=== PATIENT | female | born 1930 | race Caucasian/White ===

== ENCOUNTER 2016-10-13 16:14 | Inpatient (IN) | payer OTHER, MEDICARE ==
[~2016-10-13] VITALS: Ht 157.5 cm; Wt 62.3 kg
[~2016-10-13 16:14] MED LIST: AMPICILLIN500 M1 PO; ASPIRIN EC325 MG PO; Benadryl PO; CELEBREX200 MG PO; CENTRUM SILVER1 EAC3 PO; ENDURON5 MG PO; Ecotrin PO; FERROUS SULFAT325 MG PO; Feosol PO; HYDROCHLOROTHIA25 MG PO; HYDROCODON-ACE1 EAC7 PO; Levaquin PO; Martinic PO; NORVASC10 MG PO; Norvasc PO; OMEGA 3-6-91200 MG PO; POTASSIUM-9999 MG PO; SALMON OIL PO; SENOKOT S,PE1 TABLET PO; Senokot S,Pericolace PO; TRAMADOL HCL50 MG PO; Theragran PO; ULTRAM50 MG PO; Ultram PO; VOLTAREN75 MG PO; Vicodin,Norco 5/325 PO; XANAX0.5 MG PO; Xanax PO; ZOCOR80 MG PO; ZOLOFT50 MG PO; Zocor PO; Zoloft PO
[2016-10-13 16:43] LABS: EOSINOPHIL (%) 4.1 % (0-5); EOSINOPHIL COUNT 0.3 K/uL (0-0.3); HEMATOCRIT 32.4 % (36.0-46.0); IMMATURE GRANULOCYTE (%) 0.3 % (0.0-0.7); INSTRUMENT ABS NEUTROPHIL CT 4.3 K/uL; LYMPHOCYTE COUNT 2.4 K/uL (1.0-2.8); MCH 25.8 PG (29.0-34.0); MCHC 31.8 G/DL (30.0-36.0); MEAN PLAT.VOLUME 9.6 uM^3 (9.5-12.4); MONOCYTE (%) 8.7 % (3-12); MONOCYTE COUNT 0.7 K/uL (0-0.8); NEUTROPHIL (%) 55.4 % (45-76); NEUTROPHIL COUNT 4.3 K/uL (1.8-6.4); PLATELET COUNT 235 K/uL (156-360); RBC DIS.WIDTH-CV 13.9 % (11.8-14.6); RBC DIS.WIDTH-SD 40.8 % (39-53); WHITE BLOOD COUNT 7.8 K/uL (4.1-10.2)
[2016-10-13 16:47] LABS: AMYLASE 52 IU/L (1-118); CHLORIDE 106 mEq/L (99-109); POTASSIUM 3.6 mEq/L (3.7-5.4); SODIUM 142 mEq/L (136-147)
[2016-10-13 16:49] LABS: GLUCOSE 82 mg/dL (70-99); PROTHROMBIN TIME 10.3 (9.2-11.2); PTT 39.5 (25-32)
[2016-10-13 16:50] LABS: ANION GAP 8 MEQ/L (2-14)
[2016-10-13 16:52] LABS: SERUM ETHYL ALCOHOL < 10 mg/dL
[2016-10-13 16:53] LABS: GFR ESTIMATE (CALCULATED) > 59 mL/min/
[2016-10-13 16:54] LABS: UREA NITROGEN (BUN) 22 mg/dL (9-23)
[2016-10-13 16:56] LABS: LIPASE 34 U/L (1.0-51.0)
[2016-10-13 17:00] LABS: TROP-I INTERPRETATION NEGATIVE; TROPONIN-I < 0.01 ng/mL (0.0-0.30)
[2016-10-13 20:43] VITALS: BP 203/73
[2016-10-13 22:31] LABS: ADD MIUA? YES; BILIRUBIN NEGATIVE; BLOOD SMALL; COLOR STRAW ((YELLOW)); GLUCOSE (STRIP) NEGATIVE; KETONES NEGATIVE; LEUKOCYTES TRACE; NITRITE POSITIVE; PROTEIN (STRIP) NEGATIVE; SPECIFIC GRAVITY 1.008 (1.000-1.030); UROBILINOGEN 0.2 MG/DL (0.2-1.0)
[2016-10-13 22:42] LABS: BACTERIA RARE /HPF; EPITHELIAL CELLS RARE /HPF; MUCUS NONE SEEN /LPF; RED BLOOD CELLS 15-20 /HPF (0-5); UCUL ADDED? NO; WHITE BLOOD CELLS 0-5 /HPF (0-5); WHITE BLOOD CELLS CLUMP RARE /HPF (0-5)
[2016-10-13 22:44] LABS: AMPHETAMINE NEGATIVE (500 ng/mL); BARBITURATES NEGATIVE (200 ng/mL); BENZODIAZEPINES PRESUMPTIVE POSITIVE (150 ng/mL); COCAINE NEGATIVE (150 ng/mL); INTERNAL CONTROLS VALID? YES; METHADONE NEGATIVE (200 ng/mL); METHAMPHETAMINE NEGATIVE (500 ng/mL); OPIATES (MORPHINE) NEGATIVE (100 ng/mL); OXYCODONE NEGATIVE (100 ng/mL); PHENCYCLIDINE NEGATIVE (25 ng/mL); PROPOXYPHENE NEGATIVE (300 ng/mL); THC CANNABINOIDS NEGATIVE (50 ng/mL); TRICYCLIC ANTIDEPRESSANTS NEGATIVE (300 ng/mL)
[2016-10-13 22:45] LABS: ADD MEDTOX COMMENT Y
[2016-10-14] VITALS (7 sets, daily range): BP systolic 20–245; BP diastolic 76–105
[2016-10-14 01:36] LABS: BENZODIAZEPINES, URINE SCREEN POSITIVE (200 ng/mL)
[2016-10-14 06:04] LABS: HEMATOCRIT 33.4 % (36.0-46.0); MCH 25.7 PG (29.0-34.0); MCHC 32.3 G/DL (30.0-36.0); MCV 79.5 FL (83-99); MEAN PLAT.VOLUME 10.5 uM^3 (9.5-12.4); PLATELET COUNT 236 K/uL (156-360); RBC DIS.WIDTH-CV 13.7 % (11.8-14.6); RBC DIS.WIDTH-SD 39.8 % (39-53); WHITE BLOOD COUNT 6.9 K/uL (4.1-10.2)
[2016-10-14 06:27] LABS: ANION GAP 9 MEQ/L (2-14); CHLORIDE 107 MEQ/L (99-109); GFR ESTIMATE (CALCULATED) > 59 mL/min/; GLUCOSE 95 mg/dL (70-99); POTASSIUM 3.1 MEQ/L (3.7-5.4); SAMPLE HEMOLYSIS CHECK 0; SAMPLE ICTERIC CHECK 0; SAMPLE LIPEMIA CHECK 0; SODIUM 144 MEQ/L (136-147); UREA NITROGEN (BUN) 18 mg/dL (9-23)
[2016-10-14] MEDS ORDERED: MIRTAZAPINE7.5 MG PO (13:27)
[2016-10-14] MEDS ORDERED: DITROPAN XL10 MG PO (13:27)
[2016-10-14] MEDS ORDERED: ARICEPT10 MG PO (13:27)
[2016-10-14] MEDS ORDERED: NAPROXEN250 MG PO (13:29)
[2016-10-15] VITALS (7 sets, daily range): BP systolic 147–186; BP diastolic 65–106
[2016-10-16 00:30] VITALS: BP 110/62
[2016-10-16 04:50] VITALS: BP 193/84
[2016-10-16 07:25] VITALS: BP 167/76
[2016-10-16] MEDS ORDERED: AMLODIPINE BESYL5 MG PO (11:21)
[2016-10-16] MEDS ORDERED: CEFTIN500 MG PO (11:24)
== END 2016-10-16 13:20 | disposition home health service (06) | DRG 947 ==
LOC: EME 16:14 → 5WEST 19:02 → EDOF 19:02 → 5WEST 20:27
PROVIDERS: Emergency Medicine; Hospitalist
DX: R41.82 Altered mental status, unspecified (principal); N39.0 Urinary tract infection, site not specified; G93.40 Encephalopathy, unspecified; E87.6 Hypokalemia; T39.91XA Poisoning by unspecified nonopioid analgesic, antipyretic and antirheumatic, accidental (unintentional), initial encounter; R29.810 Facial weakness; R47.81 Slurred speech; K59.09 Other constipation; I95.9 Hypotension, unspecified; I10 Essential (primary) hypertension; R26.81 Unsteadiness on feet; E78.5 Hyperlipidemia, unspecified; F32.9 Major depressive disorder, single episode, unspecified; H91.90 Unspecified hearing loss, unspecified ear; Z96.651 Presence of right artificial knee joint
CPT/HCPCS: 70450; 70551; 71010; 73522; 73564; 80048; 81003; 82150; 82306; 82607; 83690; 84443; 84484; 84999; 85025; 85027; 85610; 85730; 86900; 86901; 87040; 87077; 87086; 87186; 93306; 93880; 95819; 99281; 99285; G0378; G0480; J0360; J0696; J1630; J1644; J2060; J7030; J7050; S0028